=== PATIENT | female | born 1935 | race African-American/Black ===

== ENCOUNTER 2023-11-07 22:56 | Inpatient (IN) | payer OTHER ==
[~2023-11-07] VITALS: Ht 160 cm; Wt 73.9 kg
[~2023-11-07 22:56] MED LIST: ASCO500T20 PO; ASPI-1160 PO; ATOR40TA70 PO; CARV6.2548 PO; MEGE20TA3 PO; ZINC1CAP2 PO
[2023-11-07] MEDS: DILTIAZEM HCL 5MG/ML 5ML VIAL IV ONE (23:30)
[2023-11-07] MEDS: SODIUM CHLORIDE 0.9% 500 ML IV ONE (23:37)
[2023-11-07] MEDS: PIPERACILLIN/TAZO 3.375G/50ML 50 ML IV ONE (23:40)
[2023-11-07 23:50] LABS: BASOPHILS % 0.7 % (0.0-2.0); EOSINOPHILS % 1.1 % (0.0-5.0); HEMATOCRIT. 32.4 % (36.0-48.0); HEMOGLOBIN. 10.5 g/dL (12.0-16.0); LYMPHOCYTES % 21.2 % (20.0-50.0); MEAN CORPUSCULAR HEMOGLOBIN 26.5 pg (28.0-32.0); MEAN CORPUSCULAR HGB CONC 32.3 g/dL (31.0-37.0); MEAN PLATELET VOLUME 7.7 fl (7.4-10.4); MONOCYTES % 10.1 % (2.0-8.0); NEUTROPHILS % 66.9 % (40.0-76.0); PLATELET 291 x1000/uL (130-400); RED BLOOD CELL COUNT 3.95 mill/uL (4.2-5.4); RED CELL DISTRIBUTION WIDTH 21.2 % (11.6-14.6)
[2023-11-07 23:52] LABS: BG BASE EXCESS 2.4 mmol/L (-2.0-2.0); BG CARBOXYHEMOGLOBIN 0.7 % (0.5-1.5); BG DEOXYHEMOGLOBIN 5.7 % (0.0-5.0); BG FRACTION INSPIRED OXYGEN 21; BG HCO3 ACT 25.5 mmol/L (22.0-26.0); BG METHEMOGLOBIN 0.4 % (0.0-1.5); BG OXYGEN SATURATION 94.2 % (92.0-98.5); BG OXYHEMOGLOBIN 93.2 % (94.0-97.0); BG PCO2 34.4 mmHg (35.0-45.0); BG PH 7.488 (7.350-7.450); BG PO2 66.1 mmHg (75.0-100.0); BG SAMPLE SITE LEFT RADIAL; BG TOTAL HEMOGLOBIN 11.7 g/dL (12.0-18.0); BG VENT MODE ROOM AIR
[2023-11-07 23:54] LABS: INR 1.1; PROTHROMBIN TIME 11.7 sec (9.6-11.0)
[2023-11-07 23:59] LABS: ALANINE AMINOTRANSFERASE 10 IU/L (10-49); ALBUMIN 3.3 g/dL (3.2-4.8); ASPARTATE AMINOTRANSFERASE 20 IU/L (<34); BILIRUBIN TOTAL 0.7 mg/dL (0.1-1.0); CARBON DIOXIDE 27 mEq/L (21-32); CHLORIDE 103 mEq/L (98-107); CREATININE 0.5 mg/dL (0.6-1.0); GLUCOSE 96 mg/dL (70-105); POTASSIUM 4.2 mEq/L (3.5-5.1); PROTEIN TOTAL 7.8 g/dL (6.0-8.3); SODIUM 136 mEq/L (136-145); TROPONIN I HIGH SENSITIVITY 24 ng/L (3.0-34); UREA NITROGEN BLOOD 17 mg/dL (9-23)
[2023-11-08] MEDS: VANCOMYCIN 1G PREMIX 200 ML IV ONE (00:38)
[2023-11-08 02:05] VITALS: BP 118/49; PULSE 108; RESP 18; TEMP 97.2
[2023-11-08 02:53] LABS: TROPONIN I HIGH SENSITIVITY 24 ng/L (3.0-34)
[2023-11-08 08:00] VITALS: BP_SYST 101; BP_SYST 108; BP_DIAS 52; BP_DIAS 78; PULSE 102; PULSE 84; RESP 18; TEMP 96.9; TEMP 98.8
[2023-11-08] MEDS ORDERED: ACETAMINOPHEN 650MG/20.3ML UDC GT PRN (09:00)
[2023-11-08] MEDS ORDERED: ONDANSETRON HCL 4MG/2ML INJ IV PRN (09:00)
[2023-11-08] MEDS ORDERED: MAGNESIUM/ALUMINUM HYDROXIDE/SIMETHICONE 30ML UDC PO PRN (09:00)
[2023-11-08] MEDS ORDERED: IPRATROPIUM/ALBUTEROL 0.5-3(2.5)MG/3ML NEB HHN PRN (09:00)
[2023-11-08] MEDS ORDERED: NA PHOS,M-B/NA PHOS,DI-BA ENEMA 118ML PR PRN (09:00)
[2023-11-08] MEDS: PANTOPRAZOLE SODIUM 40 MG/VIAL IV SCH (11:09)
[2023-11-08] MEDS: ENOXAPARIN 40MG/0.4ML SYR SUBCUT SCH (11:09)
[2023-11-08] MEDS: ASPIRIN 81MG EC TABLET PO SCH (11:09)
[2023-11-08] MEDS: DEXT 5%/LACTATED RINGERS 1,000 ML IV SCH (11:24)
[2023-11-08 11:56] VITALS: BP 108/54; PULSE 80; RESP 20; TEMP 97.7
[2023-11-08] MEDS: PIPERACILLIN/TAZO 3.375G/50ML 50 ML IV SCH (12:09)
[2023-11-08] MEDS: DIGOXIN 500MCG/2ML AMP IV NR (12:28)
[2023-11-08 12:46] LABS: IRON 20 ug/dL (50-170); PHOSPHORUS 3.2 mg/dL (2.5-4.9); TOTAL IRON BINDING CAPACITY 190 ug/dl (250-425)
[2023-11-08 13:04] LABS: FERRITIN 389 ng/mL (10-291); VITAMIN B12 SERUM 1649 pg/mL (211-911)
[2023-11-08 13:16] LABS: CLARITY URINE CLOUDY (CLEAR); COLOR URINE YELLOW (YELLOW); GLUCOSE URINE NEGATIVE (NEGATIVE); KETONES URINE NEGATIVE (NEGATIVE); LEUKOCYTE ESTERASE URINE 3+ (NEGATIVE); NITRITE URINE POSITIVE (NEGATIVE); OCCULT BLOOD URINE TRACE (NEGATIVE); PH URINE 6.5 (4.5-8.0); PROTEIN URINE TRACE (NEGATIVE); SPECIFIC GRAVITY URINE 1.019 (1.005-1.030); UROBILINOGEN URINE 0.2 E.U./dL (0.2-1.0)
[2023-11-08 13:39] LABS: BACTERIA URINE 2+; SQUAMOUS EPITHELIAL CELL URINE 1+ /lpf (RARE/1+); WBC URINE 50-100 /hpf (0-2); YEAST URINE NONE SEEN
[2023-11-08 16:00] VITALS: BP 104/54; PULSE 88; RESP 20; TEMP 98
[2023-11-08 16:58] LABS: CREATINE KINASE MB FRACTION 1.5 ng/mL (0.5-3.6)
[2023-11-08] MEDS: FUROSEMIDE 20MG/2ML VIAL IVP SCH (18:05)
[2023-11-08] MEDS: DIGOXIN 125MCG TABLET PO SCH (18:05)
[2023-11-08 20:00] VITALS: BP 96/52; PULSE 92; RESP 18; TEMP 97.9
[2023-11-08] MEDS ORDERED: DEXTROSE 50% WATER 50ML SYRINGE IV PRN (20:15)
[2023-11-08 20:30] VITALS: PULSE 113; RESP 18; O2SAT 97
[2023-11-08] MEDS: IPRATROPIUM BROMIDE (0.02%) 0.5MG/2.5ML NEB HHN SCH (20:59)
[2023-11-08] MEDS: BUDESONIDE 0.5MG/2ML NEB HHN SCH (20:59)
[2023-11-08] MEDS: INSULIN LISPRO 100 UNITS/ML SUBCUT SCH (21:00)
[2023-11-08] MEDS: BLOOD SUGAR DIAGNOSTIC STRIP TEST SCH (21:32)
[2023-11-09] VITALS (10 sets, daily range): BP systolic 100–123; BP diastolic 35–65; PULSE 85–122; RESP 18–20; TEMP 97.1–97.9; O2SAT 97–99
[2023-11-09 01:09] LABS: CREATINE KINASE MB FRACTION 1.7 ng/mL (0.5-3.6)
[2023-11-09 06:54] LABS: EOSINOPHILS % 1.1 % (0.0-5.0); HEMOGLOBIN. 10.7 g/dL (12.0-16.0); LYMPHOCYTES % 12.4 % (20.0-50.0); MEAN CORPUSCULAR HEMOGLOBIN 26.8 pg (28.0-32.0); MEAN CORPUSCULAR HGB CONC 32.5 g/dL (31.0-37.0); MEAN CORPUSCULAR VOLUME 82.6 fL (81.0-99.0); MEAN PLATELET VOLUME 7.8 fl (7.4-10.4); MONOCYTES % 12.8 % (2.0-8.0); NEUTROPHILS % 72.7 % (40.0-76.0); PLATELET 229 x1000/uL (130-400); RED BLOOD CELL COUNT 3.99 mill/uL (4.2-5.4); RED CELL DISTRIBUTION WIDTH 20.8 % (11.6-14.6); WHITE BLOOD COUNT 5.4 x1000/uL (4.5-11.0)
[2023-11-09 08:32] LABS: ALANINE AMINOTRANSFERASE 8 IU/L (10-49); ALBUMIN 2.9 g/dL (3.2-4.8); ASPARTATE AMINOTRANSFERASE 31 IU/L (<34); BILIRUBIN TOTAL 0.6 mg/dL (0.1-1.0); CALCIUM 8.4 mg/dL (8.7-10.4); CARBON DIOXIDE 27 mEq/L (21-32); CHLORIDE 101 mEq/L (98-107); CHOLESTEROL 119 mg/dL (<200); CREATININE 0.4 mg/dL (0.6-1.0); GLUCOSE 99 mg/dL (70-105); HDL CHOLESTEROL 38 mg/dL (>65); LDL CHOLESTEROL 69 mg/dL (5-100); POTASSIUM 4.1 mEq/L (3.5-5.1); PROTEIN TOTAL 6.2 g/dL (6.0-8.3); SODIUM 137 mEq/L (136-145); T4 FREE 1.15 ng/dL (0.89-1.76); TRIGLYCERIDE 36 mg/dL (0-150); UREA NITROGEN BLOOD 12 mg/dL (9-23)
[2023-11-10] VITALS (11 sets, daily range): BP systolic 86–102; BP diastolic 43–67; PULSE 85–136; RESP 18–20; TEMP 97.4–99.8; O2SAT 96–100
[2023-11-10] MEDS: THIAMINE HCL 100MG TABLET GT SCH (08:54)
[2023-11-10] MEDS ORDERED: SULF1TAB44 MT (10:11)
[2023-11-10] MEDS ORDERED: DIGO-34 PO (10:13)
[2023-11-10 11:28] LABS: HEMATOCRIT. 30.2 % (36.0-48.0); HEMOGLOBIN. 9.9 g/dL (12.0-16.0); MEAN CORPUSCULAR HEMOGLOBIN 27.3 pg (28.0-32.0); MEAN CORPUSCULAR HGB CONC 32.8 g/dL (31.0-37.0); MEAN CORPUSCULAR VOLUME 83.1 fL (81.0-99.0); RED BLOOD CELL COUNT 3.63 mill/uL (4.2-5.4); RED CELL DISTRIBUTION WIDTH 20.8 % (11.6-14.6)
[2023-11-10 11:46] LABS: DIFFERENTIAL COMMENT 1
[2023-11-10 11:48] LABS: ALANINE AMINOTRANSFERASE 7 IU/L (10-49); ALBUMIN 2.7 g/dL (3.2-4.8); ASPARTATE AMINOTRANSFERASE 20 IU/L (<34); BILIRUBIN TOTAL 0.5 mg/dL (0.1-1.0); CALCIUM 8.2 mg/dL (8.7-10.4); CARBON DIOXIDE 27 mEq/L (21-32); CHLORIDE 101 mEq/L (98-107); CREATININE 0.5 mg/dL (0.6-1.0); GLUCOSE 145 mg/dL (70-105); POTASSIUM 3.5 mEq/L (3.5-5.1); SODIUM 135 mEq/L (136-145); UREA NITROGEN BLOOD 12 mg/dL (9-23)
[2023-11-10] MEDS: DIGOXIN 500MCG/2ML AMP IV NR (12:31)
[2023-11-10 12:54] LABS: ANISOCYTOSIS 2+; PLATELET 232 x1000/uL (130-400); PLATELET ESTIMATE NORMAL
[2023-11-10] MEDS: SODIUM HYPOCHLORITE 0.125% 473ML SOLUTION TOP SCH (17:55)
[2023-11-11] VITALS (9 sets, daily range): BP systolic 91–114; BP diastolic 40–63; PULSE 58–112; RESP 16–20; TEMP 98.3–100.8; O2SAT 95–97
[2023-11-11 11:34] LABS: BASOPHILS % 0.6 % (0.0-2.0); EOSINOPHILS % 1.9 % (0.0-5.0); HEMATOCRIT. 28.3 % (36.0-48.0); HEMOGLOBIN. 9.2 g/dL (12.0-16.0); LYMPHOCYTES % 13.8 % (20.0-50.0); MEAN CORPUSCULAR HEMOGLOBIN 27.2 pg (28.0-32.0); MEAN CORPUSCULAR HGB CONC 32.4 g/dL (31.0-37.0); MEAN PLATELET VOLUME 8.2 fl (7.4-10.4); MONOCYTES % 13.2 % (2.0-8.0); NEUTROPHILS % 70.5 % (40.0-76.0); PLATELET 224 x1000/uL (130-400); RED BLOOD CELL COUNT 3.37 mill/uL (4.2-5.4); WHITE BLOOD COUNT 4.8 x1000/uL (4.5-11.0)
[2023-11-11 11:41] LABS: CALCIUM 7.8 mg/dL (8.7-10.4); CARBON DIOXIDE 29 mEq/L (21-32); CHLORIDE 104 mEq/L (98-107); CREATININE 0.5 mg/dL (0.6-1.0); GLUCOSE 116 mg/dL (70-105); POTASSIUM 3.5 mEq/L (3.5-5.1); SODIUM 139 mEq/L (136-145); UREA NITROGEN BLOOD 16 mg/dL (9-23)
[2023-11-11] MEDS: DIGOXIN 500MCG/2ML AMP IV SCH (17:25)
[2023-11-11] MEDS: METOPROLOL TARTRATE 25MG TABLET PO SCH (22:04)
[2023-11-12] VITALS (8 sets, daily range): BP systolic 97–152; BP diastolic 48–54; PULSE 82–98; RESP 18–20; TEMP 98.2–101.2; O2SAT 95
[2023-11-12] MEDS: ACETAMINOPHEN 650MG/20.3ML UDC GT PRN (01:03)
[2023-11-12 06:02] LABS: BASOPHILS % 0.5 % (0.0-2.0); HEMATOCRIT. 26.1 % (36.0-48.0); HEMOGLOBIN. 8.8 g/dL (12.0-16.0); LYMPHOCYTES % 9.8 % (20.0-50.0); MEAN CORPUSCULAR HEMOGLOBIN 27.4 pg (28.0-32.0); MEAN CORPUSCULAR HGB CONC 33.6 g/dL (31.0-37.0); MEAN CORPUSCULAR VOLUME 81.5 fL (81.0-99.0); MONOCYTES % 11.1 % (2.0-8.0); NEUTROPHILS % 77.6 % (40.0-76.0); PLATELET 220 x1000/uL (130-400); RED BLOOD CELL COUNT 3.21 mill/uL (4.2-5.4); RED CELL DISTRIBUTION WIDTH 20.4 % (11.6-14.6); WHITE BLOOD COUNT 5.3 x1000/uL (4.5-11.0)
[2023-11-12 07:07] LABS: CARBON DIOXIDE 29 mEq/L (21-32); CHLORIDE 105 mEq/L (98-107); CREATININE 0.5 mg/dL (0.6-1.0); DIGOXIN 1.7 ng/mL (0.8-2.0); GLUCOSE 141 mg/dL (70-105); POTASSIUM 3.5 mEq/L (3.5-5.1); SODIUM 140 mEq/L (136-145); UREA NITROGEN BLOOD 19 mg/dL (9-23)
[2023-11-12] MEDS: FAMOTIDINE 20MG/2ML VIAL IV SCH (08:32)
[2023-11-13] VITALS (8 sets, daily range): BP systolic 100–109; BP diastolic 45–52; PULSE 75–106; RESP 18–20; TEMP 97.7–99.1; O2SAT 96–98
== END 2023-11-13 18:34 | disposition home health service (06) | DRG 853 ==
LOC: ER 11-08 00:43 → 7WST 11-08 01:24 → EDBEDREQSVC 11-08 01:26 → EDBEDREQTM 11-08 01:26 → EDBEDREQ 11-08 01:26
PROVIDERS: ADMIT Internal Medicine; ATTEND Internal Medicine
PROC: 0QB10ZZ Excision of Sacrum, Open Approach (ICD-10-PCS; principal; 2023-11-09)
PROC: 0QBL0ZZ Excision of Right Tarsal, Open Approach (ICD-10-PCS; 2023-11-09)
DX: A41.9 Sepsis, unspecified organism (principal); G93.41 Metabolic encephalopathy; L89.224 Pressure ulcer of left hip, stage 4; L89.154 Pressure ulcer of sacral region, stage 4; J69.0 Pneumonitis due to inhalation of food and vomit; I48.19 Other persistent atrial fibrillation; N39.0 Urinary tract infection, site not specified; I50.42 Chronic combined systolic (congestive) and diastolic (congestive) heart failure; D64.9 Anemia, unspecified; I11.0 Hypertensive heart disease with heart failure; F03.90 Unspecified dementia, unspecified severity, without behavioral disturbance, psychotic disturbance, mood disturbance, and anxiety; Z20.822 Contact with and (suspected) exposure to COVID-19; I48.91 Unspecified atrial fibrillation; I25.10 Atherosclerotic heart disease of native coronary artery without angina pectoris; L89.610 Pressure ulcer of right heel, unstageable; R13.10 Dysphagia, unspecified; Z96.643 Presence of artificial hip joint, bilateral; Z74.01 Bed confinement status; Z79.82 Long term (current) use of aspirin; Z79.899 Other long term (current) drug therapy; Z87.891 Personal history of nicotine dependence; Z93.1 Gastrostomy status; Z95.1 Presence of aortocoronary bypass graft
CPT/HCPCS: 36415; 36600; 71045; 80048; 80053; 80061; 80162; 81003; 82375; 82550; 82553; 82607; 82728; 82805; 82962; 83036; 83540; 83550; 83605; 83735; 83880; 84100; 84145; 84439; 84443; 84484; 85025; 87077; 87186; 87426; 87804; 93005; 93306; 93880; 93970; 94640; 97162; 97166; 99291; A6261; C9113; J1160; J1650; J1815; J1940; J2543; J3370; J3490; J7040; J7121; J7626